=== PATIENT | male | born 1995 | race Caucasian/White ===

== ENCOUNTER 2017-12-27 08:40 | Emergency (ER) | payer OTHER ==
[2017-12-27] MEDS ORDERED: HYDROmorphONE/DILAUDID 2 MG/ML INJ IVP ONE (09:07)
[2017-12-27] MEDS ORDERED: ONDANSETRON 4 MG/2 ML VIAL IVP ONE (09:07)
[2017-12-27] MEDS ORDERED: NS 1,000 ML IV ONE ×3 (09:16→10:58)
[2017-12-27 09:41] LABS: PLATELET COUNT 314 10^3/uL (150-400)
--- NOTE | 2017-12-27 09:43 | EDPHY ---
General Time Seen by Provider: 12/27/17 09:36 Narrative: CHIEF COMPLAINT: Back pain, abdominal pain HISTORY OF PRESENT ILLNESS: Patient presents by private vehicle with complaints of low back pain. Symptoms started abruptly this morning. It is right lower back pain that has progressed to bilateral flank pain with bilateral abdominal pain as well. Nausea but no vomiting. No fever chills. No constipation. No diarrhea. No bloody stools. No trauma or injury. No history of pain similar to this. He has not felt any urinary complaints and not urinated yet here. No other associated complaints or modifying factors REVIEW OF SYSTEMS: 10 systems were reviewed and negative with the exception of the elements mentioned in the history of present illness. PCP: None SPECIALISTS: None PAST MEDICAL HISTORY: Uncomplicated PAST SURGICAL HISTORY: None. Previous colonoscopy SOCIAL HISTORY: Nonsmoker. Lives independently. FAMILY HISTORY: Noncontributory EXAMINATION: General Appearance: Alert, no distress. Conversing in full sentences. Head: normocephalic, atraumatic Eyes: Pupils equal and round, no conjunctival pallor or injection ENT, Mouth: Mucous membranes slightly dry. Airway widely patent. Neck: Normal inspection, supple, non-tender Respiratory: Lungs are clear to auscultation Cardiovascular: Regular rate and rhythm Gastrointestinal: Abdomen is soft and nondistended. There is tenderness in bilateral lower quadrants. No guarding. Negative Salas. Negative McBurney. Negative obturator. There is moderate right CVA tenderness and mild left CVA tenderness. Bowel sounds are present all 4 quadrants Back: No midline tenderness. Neurological: A&O, nonfocal, normal gait Skin: Warm and dry, no rash Extremities: Nontender, no pedal edema Psychiatric: Mood and affect normal DIFFERENTIAL DIAGNOSES: Including but not limited to renal colic, ureteral colic, colitis, diverticulitis, enteritis, mesenteric adenitis, appendicitis MDM: 9:40 a.m. Right flank and bilateral lower abdominal pain. Patient has a soft abdomen but does have tenderness on both pericolic gutters. He does present with possible renal colic versus colitis being most likely diagnosis examination. His vital signs are within normal limits. He has no leukocytosis. No fever. He does not meet SIRS criteria. He received IV pain medication fluid prior to my examination which is starting to help. I have ordered further fluid, urinalysis , liver function lipase testing. The patient will likely need CT imaging, but I would like to see urinalysis prior. 10:30 a.m. Laboratory studies are unremarkable with mild hypokalemia. CT scan has been ordered to evaluate for possible renal colic. 10:55 a.m Notified by radiologist Dr. Holt. CT scan reveals a 3 mm stone in the right ureter near the UVJ. No other acute findings. I re-evaluated the patient and he still not been able to provide a urine sample, thus I have ordered further IV fluid. 11:30 a.m. Patient re-evaluated. Urinalysis is unremarkable for any signs of infection but there is evidence of dehydration. I have ordered bladder scanner. 11:45 a.m. Bladder scan reveals minimal, less than 10 mL presence of fluid. I have ordered 3rd L IV fluid. 12:30 p.m. patient re-evaluated. His pain is significantly improved. He is feeling much better overall. I have ordered 1 dose of Flomax and continue IV fluid resuscitation. 1:00 p.m. Patient is tolerating intake of liquids by mouth. His pain is minimal. He has no fever. No back pain. We discussed discharge home with urine strainer and follow up with Urology for definitive care in the next 1-2 weeks. We discussed strict ED precautions for difficulty urinating, flank pain, fever. He is comfortable this plan. He is ambulatory discharged home stable condition. SUPERVISION: Patient was independently examined, but I discussed the case with my secondary supervising physician Dr. Kirk CONSULTATION: None. Urology referral - Diagnostics Imaging Results: Imaging Impressions Abdomen/Pelvis CT 12/27/17 10:14 Impression: 1. 3-mm distal right ureteral calculus, at ureterovesical junction, results in mild right hydronephrosis. 2. No explanation for left flank pain. Findings discussed with Emergency Department physician, Jose Daniel Brown PA-C on December 27, 2017 at 1055 hours. Attention: This CT examination is specifically designed to evaluate patients who are clinically suspected of having acute obstructive uropathy. This examination does not use radiographic contrast, and as such, provides only a limited evaluation of the abdomen, pelvis and retroperitoneum. If there is further clinical suspicion for pathological conditions other than obstructive uropathy, a complete CT evaluation of the abdomen and pelvis utilizing intravenous, oral, and rectal contrast should be considered. - History Smoking Status: Current every day smoker - Objective Vital Signs: Initial Vital Signs Temperature (C) 98.4 F 12/27/17 08:43 Heart Rate 61 12/27/17 08:43 Respiratory Rate 20 12/27/17 08:43 Blood Pressure 110/91 H 12/27/17 08:43 O2 Sat (%) 99 12/27/17 08:43 O2 Delivery Mode Room Air O2 (L/minute) 2 Allergies/Adverse Reactions: No Known Allergies Allergy (Unverified 12/27/17 08:42) Home Medications: Medication Instructions Recorded Promethazine HCl [Phenergan 25mg 25 mg PO Q8 PRN #12 tab 12/27/17 (*)] oxyCODONE HCL/ACETAMINOPHEN 1 each PO Q4-6PRN PRN #5 tablet 12/27/17 [Percocet 5-325 mg Tablet] Laboratory Results: Laboratory Results 12/27/17 09:15 12/27/17 09:15 12/27/17 12/27/17 12/27/17 11:17 09:16 09:15 WBC RBC Hgb Hct MCV MCH MCHC RDW Plt Count MPV Neut % (Auto) Lymph % (Auto) [place] % (Auto) Eos % (Auto) Baso % (Auto) Nucleat RBC Rel Count Absolute Neuts (auto) Absolute Lymphs (auto) Absolute Monos (auto) Absolute Eos (auto) Absolute Basos (auto) Absolute Nucleated RBC Immature Gran % Immature Gran # Sodium 139 mEq/L mEq/L (135-145) Potassium 3.1 mEq/L L mEq/L (3.3-5.0) Chloride 105 mEq/L mEq/L (97-110) Carbon Dioxide 17 mEq/l L mEq/l (22-31) Anion Gap 17 mEq/L H mEq/L (8-16) BUN 17 mg/dL mg/dL (7-23) Creatinine 1.0 mg/dL mg/dL (0.7-1.3) Estimated GFR > 60 Glucose 159 mg/dL H mg/dL (70-100) Calcium 9.6 mg/dL mg/dL (8.5-10.4) Total Bilirubin 1.3 mg/dL mg/dL (0.1-1.4) Conjugated Bilirubin 0.3 mg/dL mg/dL (0.0-0.5) Unconjugated Bilirubin 1.0 mg/dL mg/dL (0.0-1.1) AST 35 IU/L IU/L (17-59) ALT 51 IU/L IU/L (21-72) Alkaline Phosphatase 82 IU/L IU/L (38-126) Total Protein 6.6 g/dL g/dL (6.3-8.2) Albumin 4.5 g/dL g/dL (3.5-5.0) Lipase 161 IU/L IU/L (23-300) Urine Color YELLOW Urine Appearance CLEAR Urine pH 5.0 (5.0-7.5) Ur Specific [place] 1.030 (1.002-1.030) Urine Protein 1+ H (NEGATIVE) Urine Ketones 2+ H (NEGATIVE) Urine Blood NEGATIVE (NEGATIVE) Urine Nitrate NEGATIVE (NEGATIVE) Urine Bilirubin NEGATIVE (NEGATIVE) Urine Urobilinogen NEGATIVE EU EU (0.2-1.0) Ur Leukocyte Esterase NEGATIVE (NEGATIVE) Urine RBC NONE SEEN /hpf /hpf (0-3) Urine WBC 1-3 /hpf /hpf (0-3) Ur Epithelial Cells NONE SEEN /lpf /lpf (NONE-1+) Urine Mucus 2+ /lpf H /lpf (NONE-1+) Urine Glucose NEGATIVE (NEGATIVE) 12/27/17 09:15 WBC 6.87 10^3/uL 10^3/uL (3.80-9.50) RBC 4.70 10^6/uL 10^6/uL (4.40-6.38) Hgb 15.4 g/dL g/dL (13.7-17.5) Hct 41.3 % % (40.0-51.0) MCV 87.9 fL fL (81.5-99.8) MCH 32.8 pg pg (27.9-34.1) MCHC 37.3 g/dL H g/dL (32.4-36.7) RDW 11.8 % % (11.5-15.2) Plt Count 314 10^3/uL 10^3/uL (150-400) MPV 10.5 fL fL (8.7-11.7) Neut % (Auto) 60.5 % % (39.3-74.2) Lymph % (Auto) 29.8 % % (15.0-45.0) [place] % (Auto) 8.4 % % (4.5-13.0) Eos % (Auto) 0.6 % % (0.6-7.6) Baso % (Auto) 0.4 % % (0.3-1.7) Nucleat RBC Rel Count 0.0 % % (0.0-0.2) Absolute Neuts (auto) 4.15 10^3/uL 10^3/uL (1.70-6.50) Absolute Lymphs (auto) 2.05 10^3/uL 10^3/uL (1.00-3.00) Absolute Monos (auto) 0.58 10^3/uL 10^3/uL (0.30-0.80) Absolute Eos (auto) 0.04 10^3/uL 10^3/uL (0.03-0.40) Absolute Basos (auto) 0.03 10^3/uL 10^3/uL (0.02-0.10) Absolute Nucleated RBC 0.00 10^3/uL 10^3/uL (0-0.01) Immature Gran % 0.3 % % (0.0-1.1) Immature Gran # 0.02 10^3/uL 10^3/uL (0.00-0.10) Sodium Potassium Chloride Carbon Dioxide Anion Gap BUN Creatinine Estimated GFR Glucose Calcium Total Bilirubin Conjugated Bilirubin Unconjugated Bilirubin AST ALT Alkaline Phosphatase Total Protein Albumin Lipase Urine Color Urine Appearance Urine pH Ur Specific [place] Urine Protein Urine Ketones Urine Blood Urine Nitrate Urine Bilirubin Urine Urobilinogen Ur Leukocyte Esterase Urine RBC Urine WBC Ur Epithelial Cells Urine Mucus Urine Glucose Medications Given: Discontinued Medications Hydromorphone HCl (Dilaudid) 1 mg IVP EDNOW ONE Stop: 12/27/17 09:08 Last Admin: 12/27/17 09:15 Dose: 1 mg Hydromorphone HCl (Dilaudid) 1 mg IVP EDNOW ONE Stop: 12/27/17 10:27 Last Admin: 12/27/17 10:29 Dose: 1 mg Sodium Chloride (Ns) 1,000 mls @ 0 mls/hr IV ONCE ONE PRN Reason: Wide Open Stop: 12/27/17 09:17 Last Admin: 12/27/17 09:17 Dose: 1,000 mls Sodium Chloride (Ns) 1,000 mls @ 0 mls/hr IV EDNOW ONE; Wide Open PRN Reason: Protocol Stop: 12/27/17 09:45 Last Admin: 12/27/17 09:51 Dose: 1,000 mls Sodium Chloride (Ns) 1,000 mls @ 0 mls/hr IV EDNOW ONE; Wide Open PRN Reason: Protocol Stop: 12/27/17 10:59 Last Admin: 12/27/17 12:11 Dose: 1,000 mls Ketorolac Tromethamine (Toradol) 30 mg IVP EDNOW ONE Stop: 12/27/17 10:27 Last Admin: 12/27/17 10:29 Dose: 30 mg Ondansetron HCl (Zofran) 4 mg IVP EDNOW ONE Stop: 12/27/17 09:08 Last Admin: 12/27/17 09:16 Dose: 4 mg Tamsulosin HCl (Flomax) 0.4 mg PO EDNOW ONE Stop: 12/27/17 12:31 Last Admin: 12/27/17 12:34 Dose: 0.4 mg Departure - Departure Disposition: Home, Routine, Self-Care Clinical Impression: Ureteral colic, Flank pain Hydronephrosis Qualifiers: Hydronephrosis type: with ureteral calculous obstruction Qualified Code(s): N13.2 - Hydronephrosis with renal and ureteral calculous obstruction Condition: Good Instructions: Renal Colic (ED), Ureteral Stones (ED) Additional Instructions: 1. Increase fluid intake for the next 48 hr. Her laboratory studies here reveal that you or somewhat dehydrated. 2. Contact the on-call urologist Dr. Wolfe for outpatient definitive care in the next 1-2 weeks. 3. Strain your urine for the next 5 days 4. Return to the emergency department for any return of your flank pain, fever, vomiting, abdominal pain or difficulty urinating Referrals: Cameron Wolfe MD [Medical Doctor] - As per Instructions Stand Alone Forms: Work Excuse Prescriptions: oxyCODONE HCL/ACETAMINOPHEN [Percocet 5-325 mg Tablet] 1 each PO Q4-6PRN PRN #5 tablet PRN Reason: Pain, Breakthrough Promethazine HCl [Phenergan 25mg (*)] 25 mg PO Q8 PRN #12 tab PRN Reason: Nausea/Vomiting, Use 1st
[2017-12-27] MEDS ORDERED: KETOROLAC 30 MG/1 ML SDV IVP ONE (10:26)
[2017-12-27] MEDS ORDERED: HYDROmorphONE/DILAUDID 1 MG/ML INJ IVP ONE (10:26)
[2017-12-27] MEDS ORDERED: TAMSULOSIN HCL 0.4 MG CAP PO ONE (12:30)
[2017-12-27 12:56] VITALS: BP 119/86
== END 2017-12-27 13:00 | disposition home or self-care (01) ==
DX: N13.2 Hydronephrosis with renal and ureteral calculous obstruction (principal); N23 Unspecified renal colic; E86.0 Dehydration; F17.200 Nicotine dependence, unspecified, uncomplicated
CPT/HCPCS: 96374; J1170; J1885; J2405